=== PATIENT | male | born 1960 ===

== ENCOUNTER 2019-04-19 16:35 | Inpatient (IN) | payer OTHER, MEDICAID ==
[~2019-04-19] VITALS: Ht 172.7 cm; Wt 58.1 kg
--- NOTE | 2019-04-22 15:45 | NUR ---
PATIENT ARRIVED UNIT AMBULATORY ACCOMPANIED BY BLACKTOP PAVER OPERATOR KULWANT. PATIENT IS AAOX1 DUE TO DX SERVE MENTAL RETARDATION AND AUTISM. PATIENT IS ABLE TO FOLLOW SIMPLE COMMAND AND CALM. RESPIRATION EVEN AND UNLABORED ON RA. DENIED PAIN. NO SIGNS OF DISTRESS NOTED. SKIN INTACT AND CLEAN. PATIENT IS INCONTINENT AND AMBULATE WITH ASSIST. ENDOSCOPY TECHNICAN CHANGED PATIENT IN TO YELLOW GOWN, SOCKS AND WRIST BAND. ORIENTED PATIENT TO THE ROOM, HOW TO USE THE CALL LIGHT, BED REMOTE, TV, LIGHTS, AND TELEPHONE, REINFORCEMENT NEEDED. VITAL SIGNS TAKEN AND MRSA NARES COLLECTED. SAFETY MEASURES IN PLACE. PAD BOTH SIDE RAILS DUE PATIENT HAS EPILEPSY AND LAST SEIZURE ON 01/2019. ACTIVATED BED ALARM. BED IN LOW POSITION AND CALL LIGHT WITHIN REACH.
[2019-04-22 15:53] VITALS: BP 97/70
--- NOTE | 2019-04-22 15:55 | NUR ---
STARTED IV ON L HAND 20G, CLEAN AND INTACT, WARP AROUND WITH KELIX. PATIENT TOLERATED WELL. SAFETY MEASURES IN PLACE. BED IN LOW POSITION AND CALL LIGHT WITHIN REACH. BED ALARM ACTIVATED.
[2019-04-22 16:56] LABS: BASOPHILS % (AUTO) 0.5 % (0.0-2.0); EOSINOPHILS # (AUTO) 0.1 K/uL (0-0.4); HEMOGLOBIN 13.4 g/dL (12.0-18.0); LYMPHOCYTES # (AUTO) 2.6 K/uL (2.0-11.5); MEAN CORPUSCULAR HEMOGLOBIN 30 pg (27-31); MEAN CORPUSCULAR HGB CONC 33 g/dL (33-37); MEAN CORPUSCULAR VOLUME 89.6 fL (80-94); MONOCYTES # (AUTO) 0.4 K/uL (0.8-1.0); MONOCYTES % (AUTO) 6.6 % (1.7-9.3); NEUTROPHILS # (AUTO) 2.8 K/uL (1.8-7.7); NEUTROPHILS % (AUTO) 47.9 % (42.2-75.2); PLATELET COUNT (AUTO) 194 K/uL (140-450); RED BLOOD CELL COUNT(AUTO) 4.46 MIL/uL (4.20-6.10); RED CELL DISTRIBUTION WIDTH 14.5 % (11.6-13.7); WHITE BLOOD COUNT (AUTO) 5.8 K/uL (4.8-10.8)
[2019-04-22] MEDS: NACL 0.9% 1,000 ML IV SCH (17:07)
--- NOTE | 2019-04-22 17:25 | NUR ---
PATIENT ATTEMPTED TO GET OUT OF BED AND BED ALARM WENT OFF. REORIENTED PATIENT AND POSITIONED PATIENT COMFORTABLY ON BED. NO SIGNS OF DISTRESS NOTED. SAFETY MEASURES IN PLACE. BED IN LOW POSITION AND CALL LIGHT WITHIN REACH. BED ALARM ACTIVATED. INSTRUCTED PATIENT NOT TO GET OUT OF BED BY HIMSELF AND ALWAYS USE THE CALL LIGHT FOR ANY ASSISTANCE.
[2019-04-22 17:49] LABS: ALBUMIN 2.9 g/dL (3.4-5.0); ANION GAP 11.2 (8-16); CARBON DIOXIDE 26.8 mmol/L (21-32); CREATININE 0.8 mg/dL (0.7-1.3); FREE T4 (FREE THYROXINE) 1.3 ng/dL (0.76-1.46); MAGNESIUM 1.9 mg/dL (1.8-2.4); TOTAL BILIRUBIN 0.5 mg/dL (0.0-1.0)
[2019-04-22] MEDS ORDERED: MAGN296S48 (18:52)
[2019-04-22] MEDS ORDERED: SYN.1 PO (18:52)
[2019-04-22] MEDS ORDERED: ACET-7568 PO (18:52)
[2019-04-22] MEDS ORDERED: DIVA250T PO (18:52)
[2019-04-22] MEDS ORDERED: OLAN15TA1 PO (18:52)
[2019-04-22] MEDS ORDERED: PROP20TA28 PO (18:52)
[2019-04-22] MEDS ORDERED: DOCU100C16 PO (18:52)
[2019-04-22] MEDS ORDERED: [UNRECOGNIZED DRUG - CODE] PO (18:52)
[2019-04-22] MEDS ORDERED: PHE25S RC (18:52)
[2019-04-22] MEDS ORDERED: BEN10 PO (18:52)
[2019-04-22] MEDS ORDERED: LORA1TAB7 PO (18:52)
[2019-04-22] MEDS ORDERED: TAMS0.4C96 PO (18:52)
[2019-04-22] MEDS ORDERED: BISA-246 RC (18:52)
[2019-04-22] MEDS ORDERED: LACT10SO1 PO (18:52)
[2019-04-22] MEDS ORDERED: HAL5 PO (18:52)
[2019-04-22] MEDS ORDERED: DIPH50CA69 PO (18:52)
[2019-04-22] MEDS ORDERED: LEVOTHYROXINE 0.1 MG TAB PO SCH (18:55)
[2019-04-22] MEDS ORDERED: MAGNESIUM CITRATE 300 ML BTL PO PRN (18:55)
[2019-04-22] MEDS ORDERED: PROMETHAZINE 6.25 MG/5 ML ORASYR PO PRN (18:55)
[2019-04-22] MEDS ORDERED: diphenhydrAMINE 50 MG CAP PO PRN (18:55)
[2019-04-22] MEDS ORDERED: TAMSULOSIN 0.4 MG CAP PO SCH (18:55)
--- NOTE | 2019-04-22 19:05 | NUR ---
DR STEINER IS TALKING AND ASSESSING PATIENT AT BEDSIDE. NO SIGNS OF DISTRESS NOTED. SAFETY MEASURES IN PLACE.
--- NOTE | 2019-04-22 19:28 | NUR ---
ENDORSED PATIENT AT BEDSIDE TO GAMING DIRECTOR NURSE FOR CONTINUITY OF CARE. PATIENT IS RESTING ON BED AT THIS TIME. RESPIRATION EVEN AND UNLABORED ON RA. NO SIGNS OF DISTRESS NOTED. PATIENT IS IN STABLE CONDITION. SAFETY MEASURES IN PLACE. BED IN LOW POSITION AND CALL LIGHT WITHIN REACH. BED ALARM ACTIVATED.
--- NOTE | 2019-04-22 19:30 | NUR ---
RECEIVED REPORT FROM DAYSHIFT NURSE AT PATIENTS BEDSIDE, FOR CONTINUITY OF CARE. NO SIGNS OF DISTRESS AT THIS TIME, WILL FOLLOWUP CARE
--- NOTE | 2019-04-22 19:45 | NUR ---
PATIENT SITTING UP IN BED,AWAKE AND ALERT, ANOx1, ABLE TO STATE NAME AND SPELL LAST NAME. OBVIOUS MENTAL DELAY NOTED. ON ROOM AIR. LEFT PERIPHERAL IV 22G WITH NS @50ML/HR. VITAL SIGNS WITHIN NORMAL LIMITS. SITTER AT BEDSIDE, PATIENT ATTEMPTING TO REMOVE IV LINE AND GET OUT OF BED TO RUN AROUND, UNSTEADY GAIT REPORTED. BOWEL SOUNDS ARE ACTIVE, ABDOMEN SOFT AND NONTENDER, DIAPER IN PLACE, PATIENT IS INCONTINENT. NO NAUSEA VOMITING OR DIARRHEA REPORTED. SKIN IS DRY AND INTACT, VITAL SIGNS WITHIN NORMAL LIMITS. BED LOCKED AND IN LOW POSITION, FALL RISK PRECAUTIONS IN PLACE, SAFETY CHECKS AND ALARMS IN PLACE, WILL CONTINUE TO MONITOR
[2019-04-22 20:00] VITALS: BP 114/80
--- NOTE | 2019-04-22 20:00 | NUR ---
PATIENT STARTED ON BILATERAL SOFT WRIST RESTRAINTS, PATIENT ATTEMPTING TO PULL OUT IV LINE DESPITE WRAPPING SITE WITH KERLIX ROLL, REDIRECTING AND SITTER AT BEDSIDE. NO COMPLAINTS AT THIS TIME
[2019-04-22] MEDS: OLANZapine 5 MG TAB PO SCH (20:48)
[2019-04-22] MEDS: HALOPERIDOL 5 MG TAB PO SCH (20:48)
[2019-04-23] VITALS: BP 118/62
--- NOTE | 2019-04-23 | NUR ---
PATIENT IN BED MOANING AND TURNING OVER LEFT AND RIGHT LATERALLY FOR COMFORT, WRIST RESTRAINTS REMOVED TO ASSESS SKIN AND CIRCULATION, NO SIGNS OF INJURY. PATIENT REORIENTED TO BED AND CALL LIGHT, PATIENT CANNOT VERBALIZE UNDERSTANDING
--- NOTE | 2019-04-23 03:00 | NUR ---
RECEIVED PT FROM ALAN PELAYO FOR CONTINUOUS CARE. PT IN STABLE CONDITION.
--- NOTE | 2019-04-23 04:50 | NUR ---
PT SLEEPING IN BED. NO ACUTE DISTRESS NOTED.
--- NOTE | 2019-04-23 06:31 | NUR ---
PT AWAKE, LYING IN BED. NO ACUTE DISTRESS NOTED. BED IN LOW POSITION. CALL LIGHT WITHIN REACH.
--- NOTE | 2019-04-23 07:10 | NUR ---
RECEIVED REPORT FROM POCKET CREASER NURSE. PT AWAKE, ORIENTED X1 TO PERSON, NO C/O PAIN AT THIS TIME. RESTRAINTS IN PLACE DUE TO PATIENT RESTLESSNESS AND TRYING TO GET OUT OF BED, UNSAFE FOR PT TO BE OFF RESTRAINTS. NO EDEMA NOTED TO EXTREMITIES. IV ON LT HAND 20 GA RUNNING IVF PER ORDER. RESPIRATIONS EVEN AND UNLABORED ON RA. BS ACTIVE, SOFT ABD. SKIN IS INTACT, WARM TO TOUCH. DISCUSSED POC WITH PT, PT WILL NEED REINFORCEMENT.
[2019-04-23 08:00] VITALS: BP 122/72
--- NOTE | 2019-04-23 08:31 | NUR ---
PATIENT HAS BEEN SCREENED AND CATEGORIZED HIGH NUTRITION RISK. PATIENT WILL BE SEEN WITHIN 1-2 DAYS OF ADMISSION. 04/23/19-04/24/[address]
--- NOTE | 2019-04-23 10:30 | NUR ---
PT WITH PHYSICAL THERAPY, WALKING WITH 1 PERSON ASSIST AND STEADY GAIT. NO SIGNS OF DISTRESS AT THIS TIME.
[2019-04-23] MEDS: HALOPERIDOL 5 MG TAB PO SCH ×2 (10:51→20:17)
[2019-04-23] MEDS: OLANZapine 5 MG TAB PO SCH ×2 (10:51→20:17)
--- NOTE | 2019-04-23 10:51 | NUR ---
PT GIVEN MORNING MEDICATIONS, NO DISTRESS NOTED AT THIS TIME.
[2019-04-23] MEDS: NACL 0.9% 1,000 ML IV SCH (12:25)
--- NOTE | 2019-04-23 13:12 | NUR ---
*S.T. bedside swallow eval completed* Pt presents w/ adequate oropharyngeal swallow function for current diet textures. No overt s/s aspiration observed. Per nsg, pt is able to self-feed but at time of eval had B soft wrist restraints due to bed elopement. Noted difficulty gumming soft solids due to lack of dentition. Therefore, Recommend: 1) Continue pureed diet, thin liquids okay. Straws okay. 2) Crush P.O. meds and mix w/ puree such as applesauce. 3) Nsg to assist w/ feeding 1:1 while restrained; tray set up to promote self-feeding when pt not restrained. No further tx indicated at this time as pt is demonstrating no clinical dysphagia and appears to be functioning at baseline. DC to nsg care. Endorsed to MIT[facility] [place]. Time [id number]
--- NOTE | 2019-04-23 15:01 | NUR ---
PT UNDERGOING ECHOCARDIOGRAM AT THIS TIME, RESPIRATIONS EVEN AND UNLABORED ON RA, NO DISTRESS NOTED AT THIS TIME.
--- NOTE | 2019-04-23 15:23 | NUR ---
04/23/19 RD INITIAL ASSESSMENT COMPLETED PLEASE REFER TO NUTRITION ASSESSMENT UNDER CARE ACTIVITY FOR ESTIMATED NUTRITIONAL NEEDS. 1. CONTINUE PUREE DIET TOLERATED 2. RECOMMEND ENSURE BID WITH LIQUID CONSISTENCY RECOMMENDED BY SPEECH THERAPIST 3. RECOMMEND MULTIVITAMIN ONCE DAILY 4. RD TO FOLLOW-UP 3-5 DAYS, MODERATE RISK RENEE NAYAK RD
[2019-04-23 16:00] VITALS: BP 118/78
--- NOTE | 2019-04-23 16:45 | NUR ---
ASSISTED PT DURING AMBULATION AROUND THE UNIT, PT WALKING WITH STEADY GAIT.
--- NOTE | 2019-04-23 19:00 | NUR ---
ENDORSED PT TO REHABILITATION TEACHER NURSE. PT STILL ON RESTRAINTS, ATTEMPTS TO GET OUT OF BED AND PULL IV LINES WHEN NOT ON RESTRAINTS.
--- NOTE | 2019-04-23 19:05 | NUR ---
RECEIVED BEDSIDE REPORT FROM DAY RN. PT IS AAOX1 SELF. ON ROOM AIR. RESPIRATIONS ARE EQUAL AND UNLABORED. PT IS ON SOFT WRIST RESTRAINTS ORDER RENEW AT 1830 TODAY D/T PULLING IV LINE AND ATTEMPT TO GET PUT OF BED PER RN. SKIN IS INTACT. PT ON PUREE DIET. C/C WEIGHT LOSS. ON FALL AND SEIZURE PRECAUTION. IV ON L HAND 20G NS INFUSING AT 50M/H. POC DISCUSSED WITH PT. SAFETY MEASURES ARE IN PLACE. WILL CONTINUE TO ROUND FREQUENTLY.
--- NOTE | 2019-04-23 20:19 | NUR ---
CHAVEZ MEDICATIONS CRUSHED AND GIVEN WITH APPLE SAUCE. PT TOLERATED WELL. NO S/S OF DISTRESS. SAFETY MEASURES ARE IN PLACE. RESTRAINTS REMAIN IN PLACE. WILL CONTINUE TO MONITOR.
--- NOTE | 2019-04-23 21:00 | NUR ---
PT WAS CLEANED AND REPOSITION FOR COMFORT. NO S/S OF DISTRESS. ALL SAFETY MEASURES REMAIN IN PLACE. WILL CONTINUE TO MONITOR.
[2019-04-23 22:22] VITALS: BP 109/68
--- NOTE | 2019-04-23 22:30 | NUR ---
PATIENT IS SLEEPING COMFORTABLY IN BED. CHEST RISE AND FALL. NO S/S OF DISTRESS. ALL SAFETY MEASURES ARE IN PLACE. CALL LIGHT IS WITHIN REACH. WILL CONTINUE TO MONITOR.
--- NOTE | 2019-04-24 | NUR ---
VITAL SIGNS ARE WITHIN NORMAL LIMITS. NO S/S OF DISTRESS. PT REMAINS ON SOFT WRIST RESTRAINTS. ALL SAFETY MEASURES ARE IN PLACE. WILL CONTINUE TO MONITOR.
--- NOTE | 2019-04-24 01:20 | NUR ---
PT IS SLEEPING COMFORTABLY IN BED. CHEST RISE AND FALL. NO S/S OF DISTRESS. ALL SAFETY MEASURES ARE IN PLACE. WILL CONTINUE TO MONITOR.
--- NOTE | 2019-04-24 03:35 | NUR ---
PT IS RESTING COMFORTABLY IN BED. CHEST RISE AND FALL NO S/S OF DISTRESS. SAFETY MEASURES ARE IN PLACE.
--- NOTE | 2019-04-24 05:15 | NUR ---
PATIENT WAS CLEANED AND REPOSITION FOR COMFORT. REMOVED RESTRAINTS TO ASSESS SKIN AND CIRCULATION. ALL SAFETY MEASURES ARE IN PLACE. WILL CONTINUE TO MONITOR.
--- NOTE | 2019-04-24 07:21 | NUR ---
GAVE BEDSIDE REPORT TO DAY RN. PT ENDORSED IN STABLE CONDITION.
--- NOTE | 2019-04-24 07:22 | NUR ---
RECEIVED REPORT FROM MANAGER CLIENT SUPPORT NURSE. PATIENT LYING DOWN IN BED, CALM WITH INTERMITTENT EPISODES OF TALKING TO SELF. AAOX1, MENTALLY DISABLED, SKIN COLOR APPROPRIATE TO ETHNICITY, WARM TO TOUCH. SKIN INTACT. RESPIRATIONS EVEN, UNLABORED, ON ROOM AIR. ABDOMEN SOFT, NON-DISTENDED. REVIEWED PLAN OF CARE WITH PATIENT. PATIENT VERBALIZED UNDERSTANDING. SAFETY MEASURES IN PLACE, CALL LIGHT WITHIN REACH. WILL CONTINUE TO MONITOR.
--- NOTE | 2019-04-24 07:40 | NUR ---
SUB ASSEMBLY TEAM WORKER AT BEDSIDE FEEDING PATIENT. PATIENT EATING WELL. WILL CONTINUE TO MONITOR.
[2019-04-24 08:00] VITALS: BP 121/72
[2019-04-24] MEDS: HALOPERIDOL 5 MG TAB PO SCH (09:42)
[2019-04-24] MEDS: NACL 0.9% 1,000 ML IV SCH (09:42)
[2019-04-24] MEDS: OLANZapine 5 MG TAB PO SCH (09:42)
--- NOTE | 2019-04-24 09:46 | NUR ---
PATIENT LYING DOWN IN BED WITH SOFT WRIST RESTRAINTS ON DUE TO PULLING OUT IV LINES. SCHEDULED MEDICATIONS DUE GIVEN. AMBULATED PATIENT AROUND HALLWAYS TO HELP DECREASE ANXIETY. PATIENT SAFELY BACK TO BED. WILL CONTINUE TO MONITOR.
--- NOTE | 2019-04-24 11:44 | NUR ---
PATIENT LYING DOWN IN BED SLEEPING, AROUSABLE BY VOICE. CONDITION UNCHANGED. WILL CONTINUE TO MONITOR .
--- NOTE | 2019-04-24 13:00 | NUR ---
PATIENT LYING DOWN IN BED SLEEPING, AROUSABLE BY VOICE. NO DISTRESS NOTED. WILL CONTINUE TO MONITOR.
--- NOTE | 2019-04-24 14:00 | NUR ---
AMBULATED WITH PATIENT AROUND [facility] HALLWAYS AND PROVIDED BATHROOM ROUNDS. WILL CONTINUE TO MONITOR.
[2019-04-24 16:00] VITALS: BP 108/70
--- NOTE | 2019-04-24 17:50 | NUR ---
DISCHARGE INSTRUCTIONS PROVIDED TO PATIENT/WILLIAM, LABOR RELATIONS OFFICER OF [facility] AT BEDSIDE. INSTRUCTIONS PROVIDED IN [place]. INSTRUCTIONS ON INCREASED CALORIE INTAKE TO HELP GAIN WEIGHT, DIET REGIMEN, AND FOLLOW-UP WITH DR. Daron STEINER AT THE [facility]. WILLIAM VERBALIZED COMPLETE UNDERSTANDING. IV SITE REMOVED WITH MINIMAL BLOOD AND LUMEN COMPLETELY INTACT. ID BANDS REMOVED. ASSISTED CAREGIVER IN DRESSING PATIENT. ALL BELONGINGS WITH PATIENT. WHEELED PATIENT DOWN TO LOBBY. PATIENT LEFT BACK TO [facility] AND CARE AT THIS TIME IN STABLE CONDITION IN PRIVATE VEHICLE.
== END 2019-04-24 17:50 | disposition home or self-care (01) | DRG 640 ==
LOC: MTU 04-22 15:17
PROVIDERS: ADMIT Internal Medicine Cardiovascular Disease; ATTEND Internal Medicine Cardiovascular Disease
DX: R62.7 Adult failure to thrive (principal); E41 Nutritional marasmus; Z68.1 Body mass index [BMI] 19.9 or less, adult
CPT/HCPCS: 36415; 71045; 80053; 83036; 83735; 84154; 84439; 84443; 85025; 87081; 92610; 93005; 97116; 97161-GP; 97530; J1630; J7030; Q0092

== ENCOUNTER 2023-06-14 11:19 | Emergency (ER) | payer OTHER, MEDICAID ==
[~2023-06-14] VITALS: Ht 172.7 cm; Wt 64.6 kg
[~2023-06-14 11:19] MED LIST: ACET-8296 PO; BEN10 PO; BISA-246 RC; DIPH50CA69 PO; DIVA250T PO; DOCU-464 PO; HAL5 PO; LACT-103 PO; LORA1TAB7 PO; MAGN296S48; OLAN15TA1 PO; PROP20TA28 PO; SYN.1 PO; TAMS0.4C96 PO; [UNRECOGNIZED DRUG - CODE] PO
[2023-06-14 12:00] VITALS: BP 106/88; PULSE 93; RESP 22; TEMP 98.1; O2SAT 98
[2023-06-14] MEDS ORDERED: BACITRACIN OINT 500 UNITS/GM PKT TP ONE (13:05)
== END 2023-06-14 14:58 | disposition home or self-care (01) ==
LOC: MED 11:19
DX: S00.212A Abrasion of left eyelid and periocular area, initial encounter (principal); R03.0 Elevated blood-pressure reading, without diagnosis of hypertension; Z86.69 Personal history of other diseases of the nervous system and sense organs; Z79.899 Other long term (current) drug therapy; W18.39XA Other fall on same level, initial encounter; Y92.89 Other specified places as the place of occurrence of the external cause; Y93.89 Activity, other specified; Y99.8 Other external cause status
CPT/HCPCS: 70450; 90471; 90715; 99285